=== PATIENT | male | born 2005 | race Hispanic/Latino ===

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

== ENCOUNTER 2025-04-06 11:00 | Emergency (ER) | payer OTHER ==
[2025-04-06 12:09] LABS: Actual Bicarbonate (HCO3a) 22.6 mEq/L (22-28); Analyzer IN Cardio CS ER; Base Excess (BEa) -1.3 mEq/L (-2.0 to +3.0); CO2 Tension 36.0 mmHg (35.0-45.0); Calcium, Ionized (arterial) 1.23 mmol/L (1.12-1.30); Critical Notified Whom: cocjef; Hematocrit-ABG 50 % (42.0-52.0); Hemoglobin (Hb) 16.9 g/dL (14.0-18.0); O2 Tension (PaO2), arterial 92.9 mmHg (80.0-100.0); Potassium - ABG Lab 4.05 mmol/L (3.70-5.30); Puncture Site Right Radial artery; pH, Arterial 7.415 (7.35-7.45)
== END 2025-04-06 14:13 | disposition home or self-care (01) ==
LOC: CSHERS 11:00
DX: T59.811A Toxic effect of smoke, accidental (unintentional), initial encounter (principal); F84.0 Autistic disorder; F17.210 Nicotine dependence, cigarettes, uncomplicated; F17.290 Nicotine dependence, other tobacco product, uncomplicated
CPT/HCPCS: 36600; 71046; 82805